=== PATIENT | male | born 1980 | race Caucasian/White ===

== ENCOUNTER 2016-09-23 16:43 | Emergency (ER) | payer MEDICAID ==
[2016-09-23] MEDS ORDERED: LIDOCAINE-MPF 1% 5 ML VIAL ONE (17:12)
[2016-09-23] MEDS ORDERED: TETANUS/DIPHTHERIA/PERTUSSIS 0.5 ML SYRINGE IM ONE ×2 (17:47→17:54)
== END 2016-09-23 18:12 | disposition home or self-care (01) ==
DX: S61.212A Laceration without foreign body of right middle finger without damage to nail, initial encounter (principal); W26.8XXA Contact with other sharp object(s), not elsewhere classified, initial encounter; Y92.009 Unspecified place in unspecified non-institutional (private) residence as the place of occurrence of the external cause; Z23 Encounter for immunization; F17.200 Nicotine dependence, unspecified, uncomplicated

== ENCOUNTER 2021-02-04 01:29 | Outpatient (CLI) | payer SELFPAY | END 2021-02-04 01:30 | disposition EMS.NT | LOC: EMS 01:29 | DX: S91.114A Laceration without foreign body of right lesser toe(s) without damage to nail, initial encounter (principal); W25.XXXA Contact with sharp glass, initial encounter ==